=== PATIENT | male | born 2000 | race African-American/Black ===

== ENCOUNTER 2019-03-04 22:35 | Emergency (ER) | payer OTHER ==
[~2019-03-04] VITALS: Ht 167.6 cm; Wt 72.6 kg
[2019-03-05 00:21] VITALS: BP 132/79
== END 2019-03-05 00:15 | disposition home or self-care (01) ==
LOC: ER 22:35
DX: S27.818A Other injury of esophagus (thoracic part), initial encounter (principal); X58.XXXA Exposure to other specified factors, initial encounter; Y92.89 Other specified places as the place of occurrence of the external cause; Y93.89 Activity, other specified; Y99.8 Other external cause status